=== PATIENT | female | born 1950 | race Caucasian/White ===

== ENCOUNTER 2017-08-20 09:46 | Emergency (ER) | payer OTHER ==
[~2017-08-20] VITALS: Ht 167.6 cm; Wt 112.9 kg
[2017-08-20 10:06] VITALS: Ht 167.6 cm; Wt 112.9 kg
[2017-08-20 12:57] VITALS: BP 140/71
== END 2017-08-20 12:57 | disposition home or self-care (01) ==
LOC: ED 09:46
DX: S92.351A Displaced fracture of fifth metatarsal bone, right foot, initial encounter for closed fracture (principal); I10 Essential (primary) hypertension; E78.00 Pure hypercholesterolemia, unspecified; M25.571 Pain in right ankle and joints of right foot; F17.210 Nicotine dependence, cigarettes, uncomplicated; W18.30XA Fall on same level, unspecified, initial encounter; Y93.84 Activity, sleeping; Y99.8 Other external cause status; Y92.89 Other specified places as the place of occurrence of the external cause

== ENCOUNTER 2018-01-16 06:02 | Day surgery (SDC) | payer OTHER ==
[~2018-01-16] VITALS: Ht 167.6 cm; Wt 108.9 kg
[2018-01-16 06:29] VITALS: BP 126/76
[2018-01-16 15:37] VITALS: BP 113/70
== END 2018-01-16 14:20 | disposition home or self-care (01) ==
LOC: DS 06:02 → OR 07:30 → DS 07:30
PROVIDERS: Neuromusculoskeletal Medicine, Sports Medicine
PROC: 0RNK0ZZ Release Left Shoulder Joint, Open Approach (ICD-10-PCS; 2018-01-16)
PROC: 0LM20ZZ Reattachment of Left Shoulder Tendon, Open Approach (ICD-10-PCS; principal; 2018-01-16 07:30)
DX: M75.122 Complete rotator cuff tear or rupture of left shoulder, not specified as traumatic (principal); I10 Essential (primary) hypertension; E78.5 Hyperlipidemia, unspecified; E66.9 Obesity, unspecified; Z68.35 Body mass index [BMI] 35.0-35.9, adult; Z72.0 Tobacco use
CPT/HCPCS: C1713; J0330; J0690; J1170; J1885; J2175; J2250; J2405; J2704; J3010; J3490; J7120

== ENCOUNTER 2020-01-28 10:43 | Emergency (ER) | payer OTHER, MEDICAID ==
[~2020-01-28] VITALS: Ht 167.6 cm; Wt 104.3 kg
[2020-01-28 10:54] VITALS: Ht 167.6 cm; Wt 104.3 kg
[2020-01-28 13:38] VITALS: BP 145/80
== END 2020-01-28 13:38 | disposition home or self-care (01) ==
LOC: ED 10:43
DX: M54.12 Radiculopathy, cervical region (principal); M19.011 Primary osteoarthritis, right shoulder; I10 Essential (primary) hypertension; E78.00 Pure hypercholesterolemia, unspecified; Z87.442 Personal history of urinary calculi; F17.200 Nicotine dependence, unspecified, uncomplicated
CPT/HCPCS: 99406; Q0092